=== PATIENT | male | born 1990 | race Caucasian/White ===

== ENCOUNTER 2018-01-06 18:18 | Emergency (ER) | payer MEDICAID, SELFPAY ==
[2018-01-06 18:19] VITALS: BP 122/88; PULSE 75; RESP 21; TEMP 36.8; O2SAT 100; BMI 29.6
--- NOTE | 2018-01-06 18:31 | ED.RN ---
PT REPORTS THAT HE TAKES HALDOL DAILY BUT IS UNSURE OF THE DOSE. RN CALLED [facility] TO GET MEDICATION DOSE, AND DID NOT RECEIVE AN ANSWER.
--- NOTE | 2018-01-06 20:07 | ED.RN ---
RN RE-EVALUATED PT FOR PO CHALLENGE. PT TOLERATED WELL. PT STATES, WHEN ARE THE ALIENS COMING TO GET ME? RN ASKED PT IF HE HAS HAD ANY HALLUCINATIONS AND PT STATES YES. PT REPORTS THAT HE IF AFRAID SOMEONE IS GOING TO KILL HIM. PT ASSURED THAT THE HOSPITAL IS A SAFE PLACE. DR. AVILA INFORMED AND MENTAL HEALTH PROFILE OBTAINED. PLACED IN ONLY A GOWN, BELONGINGS LABELED AND PLACED IN BIN. PT MOVWED TO ROOM TO TO BE CLOSE TO NURSES STATION. WILL CONTINUE TO MONITOR.
[2018-01-06 20:09] VITALS: BP 141/98; PULSE 86; RESP 16; O2SAT 100
[2018-01-06 20:11] LABS: Absolute Lymphocyte Count 3.09 X10^3/ul (0.83-4.51); Absolute Neutrophil Count 7.2 X10^3/uL (2.0-7.7); Basophil# 0.04 X10^3/uL; Basophil% 0.4 % (0-1); Eosinophil# 0.11 X10^3/uL; Hematocrit 43.8 % (40-54); Hemoglobin 14.6 g/dl (13.0-16.5); Lymphocyte # 3.09 X10^3/ul (4.0); Lymphocyte % 27.5 % (19-41); Mean Corp Hgb Conc 33.3 g/gl (32-36); Mean Corpuscular Hgb 27.6 pg (27.0-32.0); Mean Corpuscular Volume 82.8 fL (80-94); Mean Platelet Vol. 11.5 fl (6.2-12.0); Monocyte# 0.77 X10^3/uL; Monocyte% 6.8 % (0-10); Neutrophil # 7.23 X10^3/uL (2.7-7.7); Neutrophil % 64.2 % (47-70); Platelet Count 299 K/mm3 (150-450); RBC Distribution Width CV 13.7 % (11.6-14.6); RBC Distribution Width SD 41.4 fl (35.1-43.9); Red Blood Count 5.29 M/mm3 (4.6-6.2); White Blood Count 11.3 K/mm3 (4.4-11.0)
[2018-01-06 20:15] LABS: POSITIVE COUNT NO; POSITIVE DIFFERENTIAL NO; POSITIVE MORPHOLOGY NO
[2018-01-06 20:17] LABS: Anion Gap 14 (5-15); BUN 7 mg/dL (7-18); BUN/Creat Ratio 6.7 RATIO (10-20); Calcium,Total 9.5 mg/dL (8.5-10.1); Chloride 104 mmol/L (98-107); Creatinine, Serum 1.05 mg/dL (0.70-1.30); EST Glomerular Filtration Rate 89 mL/min (>60); Est Glom Filt Rate - Afr Amer 108 mL/min (>60); Estimated Creatinine Clearance 114.96 ml/min; Glucose 92 mg/dL (74-106); Potassium 3.5 mmol/L (3.5-5.1); Sodium Level 140 mmol/L (136-145)
[2018-01-06 20:44] LABS: Amphetamine Urine VISTA NEGATIVE (<1000 ng/mL); Barbiturate Urine VISTA NEGATIVE (< 200 ng/mL); Benzodiazepine Urine VISTA NEGATIVE (< 200 ng/mL); Cocaine Urine VISTA NEGATIVE (< 300 ng/mL); Ecstacy Urine VISTA NEGATIVE (< 500 ng/mL); Methadone Urine VISTA NEGATIVE (< 300 ng/mL); PCP Urine VISTA NEGATIVE (< 25 ng/mL); THC Urine VISTA NEGATIVE (< 50 ng/mL); Vista UDS pH Range 6
[2018-01-06 21:37] VITALS: RESP 14
--- NOTE | 2018-01-06 21:46 | ED.RN ---
MEDICATION LIST OBTAINED FROM [facility] WORKER.
[2018-01-06] MEDS: LORazepam 1 MG Tablet PO (21:52)
[2018-01-06] MEDS: Haloperidol 5 MG Tablet PO (21:55)
[2018-01-06] MEDS: Benztropine 2 MG Tablet 1 MG PO (21:55)
[2018-01-06 22:04] VITALS: BP 144/102; PULSE 99; RESP 17; O2SAT 100
--- NOTE | 2018-01-06 22:53 | ED.VISSUMM ---
- ER Visit Summary Date of Service: 01/06/18 Chief Complaint: Anxiety History of Present Illness: The patient is a 27 M presenting with anxiety. He states he drank too much coffee prior to arrival and is now anxious. He initially denies hallucinations or suicidal ideation. He is pacing around the room and states that he just drank too much coffee. He has a history of schizophrenia. He did take his daily Haldol today. Physical Examination: Vitals are stable. Patient is afebrile. Alert no acute distress. HEENT exam is unremarkable. Neck is supple. Lungs are clear and equal bilaterally. Heart is regular rate and rhythm. Abdomen is soft nontender nondistended. Extremities are unremarkable. Skin is warm and dry. No focal neurologic deficit. Pacing, agitated. Denies suicidal ideation Remainder of exam is unremarkable. Emergency Department Course and Treatment: Patient continues to pace around the room. He later asked the nurse when the aliens were coming to get him. He states that he feels he needs to be readmitted to [facility]. He now admits to hallucinations. CBC, chemistries unremarkable. Tox is negative. Alcohol 16.0. His home medications were ordered. Discussed with the counseling center for evaluation. Disposition: Per counseling center Impression: Hallucinations, history of schizophrenia This note was generated with [employer] dictation software. It may contain incorrect words, spelling, and punctuation that were not noted in review of the chart prior to signing ED Disposition - Plan for ED Patient: Chief Complaint: Anxiety Referrals: NOT,DEFINED [Primary Care Provider] -
--- NOTE | 2018-01-06 22:56 | ED.DCSUM_ITS ---
- ER Visit Summary Date of Service: 01/06/18 Chief Complaint: Anxiety History of Present Illness: The patient is a 27 M presenting with anxiety. He states he drank too much coffee prior to arrival and is now anxious. He initially denies hallucinations or suicidal ideation. He is pacing around the room and states that he just drank too much coffee. He has a history of schizophrenia. He did take his daily Haldol today. Physical Examination: Vitals are stable. Patient is afebrile. Alert no acute distress. HEENT exam is unremarkable. Neck is supple. Lungs are clear and equal bilaterally. Heart is regular rate and rhythm. Abdomen is soft nontender nondistended. Extremities are unremarkable. Skin is warm and dry. No focal neurologic deficit. Pacing, agitated. Denies suicidal ideation Remainder of exam is unremarkable. Emergency Department Course and Treatment: Patient continues to pace around the room. He later asked the nurse when the aliens were coming to get him. He states that he feels he needs to be readmitted to [facility]. He now admits to hallucinations. CBC, chemistries unremarkable. Tox is negative. Alcohol 16.0. His home medications were ordered. Discussed with the counseling center for evaluation. Disposition: Per counseling center Impression: Hallucinations, history of schizophrenia This note was generated with [employer] dictation software. It may contain incorrect words, spelling, and punctuation that were not noted in review of the chart prior to signing ED Disposition - Plan for ED Patient: Chief Complaint: Anxiety Referrals: NOT,DEFINED [Primary Care Provider] -
--- NOTE | 2018-01-06 23:01 | EKG12_ITS ---
Test Reason : PHYSCH Blood Pressure : / mmHG Vent. Rate : 093 BPM Atrial Rate : 093 BPM P-R Int : 156 ms QRS Dur : 088 ms QT Int : 366 ms P-R-T Axes : 057 066 041 degrees QTc Int : 455 ms Sinus rhythm with Premature atrial complexes Confirmed by JAMES BARBOSA, TYRA ([id number]), offline editor GONZALEZ NEWTON ([id number]) on 01/08/2018 2:26:03 PM Referred By: Confirmed By:TYRA RAMIREZ MD
--- NOTE | 2018-01-06 23:02 | ED.RN ---
[facility]
[2018-01-06 23:12] LABS: Bacteria 0 SEEN /hpf (None Seen); Mucous, Urine 0 SEEN /hpf (<or=2+); Red Blood Cells-Urine 0 SEEN /hpf (0-5); Squamous Epithelial Cells - UA 0 SEEN /hpf (0-5); White Blood Cells 0 SEEN /hpf (0-5)
[2018-01-06 23:14] LABS: Color, Urine Straw (Yellow); Glucose, Dipstick Normal (Normal); Ketone-Dipstick Negative (Negative); Leukocyte Esterase-Dipstick Negative /ul (Negative); Nitrite-Dipstick Negative (Negative); Occult Blood-Urine Negative /ul (Negative); Protein-Dipstick Negative (Negative); Urine Bilirubin Dipstick Negative (Negative); Urine Clarity Sl. Cloudy (Clear); Urine Urobilinogen Normal (Normal)
[2018-01-06 23:33] LABS: AST(SGOT) 38 U/L (15-37); Alanine Aminotransfer ALT/SGPT 59 U/L (16-61); Albumin, Serum 4.6 g/dL (3.2-5.0); Alkaline Phosphatase 101 U/L (45-117); Bilirubin, Direct 0.11 mg/dL (0.00-0.30); Globulin 3.6 g/dL (2.2-4.2); Protein, Total 8.2 g/dL (6.4-8.2)
[2018-01-07] VITALS (12 sets, daily range): BP systolic 113–129; BP diastolic 64–93; PULSE 16–102; RESP 14–20; O2SAT 96–100
--- NOTE | 2018-01-07 01:29 | ED.RN ---
THIS RN SPOKE WITH CRISIS COUNSELOR, WHO REPORTS THAT PT INFORMATION HAS BEEN FAXED TO [facility]. PT NOT OFFICIALLY ACCEPTED BUT IS TO BE RE-EVALUATED IN THE AM. WATERVLIETROSELIA WILL NEED CONTACTED IN AM WITH REPORT ON PT CARE.
[2018-01-07] MEDS: Benztropine 2 MG Tablet 1 MG PO (09:10)
[2018-01-07] MEDS: Haloperidol 5 MG Tablet PO (09:10)
== END 2018-01-07 12:34 ==
PROVIDERS: Emergency Provider Emergency Medicine
DX: R44.3 Hallucinations, unspecified (principal); F41.9 Anxiety disorder, unspecified; F20.9 Schizophrenia, unspecified; Z79.899 Other long term (current) drug therapy
CPT/HCPCS: 36415; 80048; 80076; 80307; 80320; 81001; 85025; 93005; 99285; G0480

== ENCOUNTER 2018-02-04 17:56 | Emergency (ER) | payer MEDICAID, SELFPAY ==
[2018-02-04 17:58] VITALS: BP 126/93; PULSE 74; RESP 16; TEMP 37.3; O2SAT 98; BMI 28.4
--- NOTE | 2018-02-04 18:46 | EKG12_ITS ---
Test Reason : [facility] [place] Blood Pressure : / mmHG Vent. Rate : 079 BPM Atrial Rate : 082 BPM P-R Int : 164 ms QRS Dur : 086 ms QT Int : 372 ms P-R-T Axes : 038 064 046 degrees QTc Int : 426 ms Sinus rhythm with Premature atrial complexes Otherwise normal ECG Confirmed by ERIC BARBOSA, HEIDI ([id number]), video effects editor GONZALEZ NEWTON ([id number]) on 02/08/2018 2:59:25 PM Referred By: DC Confirmed By:HEIDI REYES MD
[2018-02-04 19:02] VITALS: RESP 16
[2018-02-04 19:08] LABS: Absolute Lymphocyte Count 2.97 X10^3/ul (0.83-4.51); Absolute Neutrophil Count 3.2 X10^3/uL (2.0-7.7); Basophil# 0.05 X10^3/uL; Basophil% 0.7 % (0-1); Eosinophil# 0.26 X10^3/uL; Eosinophils% 3.8 % (0-5); Hemoglobin 13.7 g/dl (13.0-16.5); Lymphocyte # 2.97 X10^3/ul (4.0); Lymphocyte % 43.3 % (19-41); Mean Corp Hgb Conc 33.4 g/gl (32-36); Mean Corpuscular Volume 83.7 fL (80-94); Monocyte% 5.8 % (0-10); Neutrophil # 3.18 X10^3/uL (2.7-7.7); Neutrophil % 46.4 % (47-70); POSITIVE COUNT NO; POSITIVE DIFFERENTIAL NO; POSITIVE MORPHOLOGY NO; Platelet Count 277 K/mm3 (150-450); RBC Distribution Width CV 13.6 % (11.6-14.6); RBC Distribution Width SD 41.5 fl (35.1-43.9); White Blood Count 6.9 K/mm3 (4.4-11.0)
[2018-02-04 19:18] LABS: Alcohol, Blood (Medical)-Serum < 3.0 mg/dL
[2018-02-04 19:19] LABS: Amphetamine Urine VISTA NEGATIVE (<1000 ng/mL); Barbiturate Urine VISTA NEGATIVE (< 200 ng/mL); Benzodiazepine Urine VISTA NEGATIVE (< 200 ng/mL); Cocaine Urine VISTA NEGATIVE (< 300 ng/mL); Ecstacy Urine VISTA NEGATIVE (< 500 ng/mL); Methadone Urine VISTA NEGATIVE (< 300 ng/mL); PCP Urine VISTA NEGATIVE (< 25 ng/mL); THC Urine VISTA NEGATIVE (< 50 ng/mL); Vista UDS pH Range 6
[2018-02-04 19:27] LABS: Anion Gap 6 (5-15); BUN 9 mg/dL (7-18); BUN/Creat Ratio 9.4 RATIO (10-20); Calcium,Total 8.8 mg/dL (8.5-10.1); Chloride 105 mmol/L (98-107); Creatinine, Serum 0.95 mg/dL (0.70-1.30); EST Glomerular Filtration Rate 100 mL/min (>60); Est Glom Filt Rate - Afr Amer 121 mL/min (>60); Estimated Creatinine Clearance 127.06 ml/min; Glucose 93 mg/dL (74-106); Potassium 3.2 mmol/L (3.5-5.1); Sodium Level 139 mmol/L (136-145)
[2018-02-04 20:00] VITALS: RESP 16
--- NOTE | 2018-02-04 20:31 | ED.VISSUMM ---
- ER Visit Summary Date of Service: 02/04/18 Chief Complaint: Delusions History of Present Illness: The patient is a 27 M schizophrenia. He resides in [facility]. He is concerned that someone named Robbie is coming to kill him. He also reports some chest pain that is associated with drinking a lot of coffee today. He had similar symptoms in the past. No other new or associated symptoms. Physical Examination: Afebrile and vital signs unremarkable. Patient is pacing in the exam room. Head atraumatic. Cranial nerves grossly intact. HEENT exam normal. Heart regular. Lungs clear. Abdomen soft. Skin normal in color. Test Results: CBC normal. Potassium 3.2. Troponin normal. Tox screen negative. Alcohol negative. EKG showed sinus rhythm at a rate of 79. No sign of acute ischemia or infarction pattern. Emergency Department Course and Treatment: Patient had mental health precautions. He was not suicidal. I believe he would benefit from inpatient care given his psychosis. He is cleared from a medical standpoint for transfer to a mental health facility. He is being evaluated by the counselor at the time of this dictation. Treatment Plan: As above Disposition: Transfer Impression: 1. Psychosis This note was generated with [employer] dictation software. It may contain incorrect words, spelling, and punctuation that were not noted in review of the chart prior to signing ED Disposition - Plan for ED Patient: Chief Complaint: Mental Health Referrals: Care Physician,No Primary [Primary Care Provider] -
[2018-02-04 21:00] VITALS: BP 126/86; PULSE 87; RESP 16; O2SAT 98
[2018-02-04 22:00] VITALS: RESP 18
[2018-02-04 23:00] VITALS: RESP 14
[2018-02-05] VITALS (15 sets, daily range): BP systolic 105–145; BP diastolic 67–103; PULSE 59–99; RESP 15–20; TEMP 36.8; O2SAT 96–100
== END 2018-02-05 20:03 | disposition home or self-care (01) ==
PROVIDERS: Emergency Provider Emergency Medicine
DX: F29 Unspecified psychosis not due to a substance or known physiological condition (principal); F20.9 Schizophrenia, unspecified; Z79.899 Other long term (current) drug therapy
CPT/HCPCS: 80048; 80307; 80320; 84484; 85025; 93005; 99285; G0480